=== PATIENT | female | born 1990 | race Caucasian/White ===

== ENCOUNTER 2019-02-15 17:00 | Emergency (ER) | payer OTHER ==
[2019-02-15 17:25] VITALS: BP 125/64
--- NOTE | 2019-02-15 17:37 | UC ---
Skin Complaint HPI - HPI Summary HPI Summary: 29 y/o female presents to the urgent care c/o Left ring finger redness and swelling near the cuticle for the past 3 days. She has been using hot water an salt soaks , no improvement. Redness is spreading. No recall of injury. Pt does state she bites her cuticles. Pt removed her ring of that finger since finger is getting swollen. Pain is 6/10 at touch and she can move her finger w/o any problem. Pt denies Hx of MRSA, numbness and tingling sensation over her left ring finger, SOB, chest pain, abdominal pain, N/V/d. She has not taking anything for pain. - History of Current Complaint Chief Complaint: UCSkin Time Seen by Provider: 02/15/19 17:36 Stated Complaint: LT RING FINGER COMPLAINT Hx Obtained From: Patient Hx Last Menstrual Period: 02/01/19 ?: No Onset/Duration: Gradual Onset, Lasting Days - 3 days, Still Present, Worse Since - today Skin Exposure Onset/Duration: Days Ago - 3 days, Worse Since: - today Timing: Constant Onset Severity: Mild Current Severity: Moderate Pain Intensity: 6 Pain Scale Used: 0-10 Numeric Location: Discrete - left ring finger Character: Swelling, Pain, Redness, Raised, Painful Aggravating Factor(s): Touch Alleviating Factor(s): Nothing Associated Signs & Symptoms: Positive: Rash - left middle finge. Negative: Fever, Chills - Allergy/Home Medications Allergies/Adverse Reactions: Allergies Allergy/AdvReac Type Severity Reaction Status Date / Time adhesive Allergy Unknown Rash Verified 02/15/19 17:17 PMH/Surg Hx/FS Hx/Imm Hx Previously Healthy: Yes - Pt denies PMHX - Surgical History Surgical History: Yes Surgery Procedure, Year, and Place: tonsillectomy - Family History Known Family History: Positive: None - Pt denies FMHX - Social History Occupation: Employed Full-time Lives: With Family Alcohol Use: Occasionally Substance Use Type: None Smoking Status (MU): Never Smoked Tobacco Review of Systems All Other Systems Reviewed And Are Negative: Yes Constitutional: Positive: Negative Skin: Positive: Other - painful lump, swollen and red in the left ring finger Eyes: Positive: Negative ENT: Positive: Negative Respiratory: Positive: Negative Cardiovascular: Positive: Negative Gastrointestinal: Positive: Negative Genitourinary: Positive: Negative Motor: Positive: Negative Neurovascular: Positive: Negative Musculoskeletal: Positive: Other: - left ring finger pain Neurological: Positive: Negative Psychological: Positive: Negative Is Patient Immunocompromised?: No Physical Exam - Summary Physical Exam Summary: Vital Signs Reviewed: Yes General: well developed, well nourished female sitting in the examining table w/ o any apparent distress Eye Exam: Normal Eyes: Positive: Conjunctiva Clear - PERRLA, EOMI, fundi grossly normal ENT: Positive: Normal ENT inspection, Hearing grossly normal, Pharynx normal, TMs normal Neck: Positive: Supple, Nontender, No Lymphadenopathy Respiratory: Positive: Chest non-tender, Lungs clear, Normal breath sounds, No respiratory distress Cardiovascular: Positive: RRR, No Murmur, Pulses Normal, Brisk Capillary Refill Abdomen Description: Positive: Nontender, No Organomegaly, Soft. Negative: CVA Tenderness (R), CVA Tenderness (L) Bowel Sounds: Positive: Present Musculoskeletal: Positive: Strength Intact, ROM Intact, No Edema Neurological: Positive: Alert, Muscle Tone Normal Psychological Exam: Normal Skin: Positive: LF # 4 phalanx near DIPJ with a small erythematous pustule around nail that is indurated and fluctuant, tender to palpation, swollen, and warm to touch about .5cm in size. FROM of RT ring phalanx, sensation is intact, capillary refill WNL, reflexes WNL Triage Information Reviewed: Yes Vital Signs: Initial Vital Signs Temp 98.4 F 02/15/19 17:18 Pulse 83 02/15/19 17:18 Resp 16 02/15/19 17:18 BP 125/64 02/15/19 17:18 Pulse Ox 100 02/15/19 17:18 Course/Dx - Course Course Of Treatment: 29 y/o female presents to the urgent care c/o Left ring finger redness and swelling near the cuticle for the past 3 days. She has been using hot water an salt soaks , no improvement. Redness is spreading. No recall of injury. Pt does state she bites her cuticles. Pt removed her ring of that finger since finger is getting swollen. Pain is 6/10 at touch and she can move her finger w/o any problem. Pt denies Hx of MRSA, numbness and tingling sensation over her left ring finger, SOB, chest pain, abdominal pain, N/V/d. She has not taking anything for pain. Hx obtained. Pt w/ left ring finger paronychia on examination. I&D of paronychia procedure:The procedure was explained and consent obtained. [place] protocol performed. Digital block performed at base of of left 4th phalanx w/ 2 mL of L[place] 1% with good anesthesia. Sterile drape and prep were done. The fluctuant center around nail was incised with #11 blade scalpel. A small amount of caseous material was expressed . wound cultures obtained and sent to lab top r/o MRSA. wound was irrigated with normal saline. Bacitracin topical ointment applied and wound covered with sterile dressing. The patient tolerated the procedure well. Pt Rx Keflex PO and Bacitrain oint. Pt advised to taken ibuprofen PO for pain and if fever develops and pain increase despite ABX to go immediately to the ER for further management. D/C instructions explained. Pt understood and agreed with D/C instructions. Left the clinic ambulating A&OX3. - Differential Diagnoses - Skin Complaint Differential Diagnoses: Abscess, Cellulitis, Contact Dermatitis, Lymphadenitis, MRSA, Tinea, Other - paronychia - Diagnoses Provider Diagnosis: Paronychia of left ring finger Discharge ED - Sign-Out/Discharge Documenting (check all that apply): Patient Departure - D/C home All imaging exams completed and their final reports reviewed: No Studies - Discharge Plan Condition: Stable Disposition: HOME Prescriptions: Bacitracin OINTMENT* 1 applic TOPICAL BID #1 tube Cephalexin CAP* [Keflex CAP*] 500 mg PO QID #28 cap Patient Education Materials: Paronychia (ED) Referrals: No Primary Care Phys,NOPCP [Primary Care Provider] - Additional Instructions: 1-Please take full course of antibiotic to avoid resistance. Keep wound clean and dry with a sterile dressing. Apply bacitracin topical as directed 2-. Take Ibuprofen PO q6-8hrs prn for pain or swelling. 4-If you develop fever or redness despite antibiotic please go to the ER immediately or return to the Urgent care. 5- Wound culture sent to lab, if any abnormal result you will receive a call from us. - Billing Disposition and Condition Condition: STABLE Disposition: Home
[2019-02-15] MEDS ORDERED: Lidocaine 1% MPF ** 5 ML VIAL INJ ONE (17:42)
== END 2019-02-15 18:20 | disposition home or self-care (01) ==
LOC: UCCORT 17:00
DX: L03.012 Cellulitis of left finger (principal); Z91.09 Other allergy status, other than to drugs and biological substances
CPT/HCPCS: 10060; 12001; 87070; 87076; 87077; 87186; 87205; 99212; G0463